=== PATIENT | female | born 1990 | race African-American/Black ===

== ENCOUNTER 2016-07-08 13:54 | Outpatient (CLI) | payer SELFPAY | END 2016-07-08 13:55 | disposition home or self-care (01) | DX: Z13.89 Encounter for screening for other disorder (principal) ==

== ENCOUNTER 2018-05-14 08:00 | Outpatient (CLI) | payer OTHER ==
[2018-05-14 13:31] LABS: BASOPHILS % (AUTO) 0.5 %; EOSINOPHILS # (AUTO) 0.2 10^3/uL (0.0-0.7); EOSINOPHILS % (AUTO) 2.6 %; HGB - HEMOGLOBIN 13.7 g/dL (12.0-16.0); LYMPHOCYTES # (AUTO) 2.1 10^3/uL (1.5-3.5); LYMPHOCYTES % (AUTO) 29.4 %; MEAN CORPUSCULAR HEMOGLOBIN 27.6 pg (27.0-31.0); MEAN CORPUSCULAR HGB CONC 32.7 g/dL (32.0-36.0); MEAN CORPUSCULAR VOLUME 84.5 fL (81.0-99.0); MEAN PLATELET VOLUME 9.4 fL (7.9-10.8); MONOCYTES # (AUTO) 0.7 10^3/uL (0.0-1.0); NEUTROPHILS % (AUTO) 57.5 %; PLT - PLATELET COUNT 247 10^3/uL (130-450); RED BLOOD COUNT 4.97 10^6/uL (4.20-5.40); RED CELL DISTRIBUTION WIDTH 14.6 % (12.0-15.0)
[2018-05-14 15:16] LABS: ALBUMIN 3.8 g/dL (3.2-5.5); ALKALINE PHOSPHATASE 62 IU/L (42-121); ALT ALANINE AMINOTRANSFERASE 19 IU/L (10-60); AST ASPARTATE AMINOTRANSFERASE 22 IU/L (10-42); BILIRUBIN,TOTAL 0.3 mg/dL (0.2-1.0); BUN - BLOOD UREA NITROGEN 17 mg/dL (6-20); CALCIUM 9.4 mg/dL (8.5-10.3); CARBON DIOXIDE - CO2 25 mmol/L (21-32); CHLORIDE 100 mmol/L (101-111); CHOL/HDL RATIO 3.4 (<4.4); CHOLESTEROL 176 mg/dL; CREATININE 0.8 mg/dL (0.4-1.0); GFR - MDRD 102 (>89); GLUCOSE 90 mg/dL (70-100); HDL CHOLESTEROL 52 mg/dL; SODIUM 136 mmol/L (135-145); TOTAL PROTEIN 7.6 g/dL (6.7-8.2)
[2018-05-14 16:48] LABS: LDL CHOLESTEROL,DIRECT 135 mg/dL; LDLD/HDL RATIO 2.6 (<4.4)
== END 2018-05-14 23:59 | disposition home or self-care (01) ==
LOC: LAB.N 08:00
PROVIDERS: ATTEND Nurse Practitioner Gerontology
DX: I10 Essential (primary) hypertension (principal); R63.5 Abnormal weight gain; Z79.899 Other long term (current) drug therapy
CPT/HCPCS: 36415; 80053; 80061; 83721; 84443; 85025

== ENCOUNTER 2018-12-09 08:53 | Outpatient (CLI) | payer OTHER ==
--- NOTE | 2018-12-09 12:14 | XRAY Report ---
Reason: KNEE PAIN Procedure Date: 12/09/2018 Accession Number: [id number] / [id number] Procedure: XRN - Knee 3 View RT CPT Code: FULL RESULT: EXAM: RIGHT KNEE RADIOGRAPHY EXAM DATE: 12/09/2018 09:58 AM. CLINICAL HISTORY: Knee pain. COMPARISON: None. TECHNIQUE: 3 views. FINDINGS: Bones: Normal. No fractures or bone lesions. Joints: Minimal tricompartmental degenerative changes in the right knee with joint space loss and osteophytosis. Possible small effusion. No subluxations. Soft Tissues: Normal. No soft tissue swelling. IMPRESSION: Minimal tricompartmental degenerative changes in the right knee. [facility]
== END 2018-12-09 08:54 | disposition home or self-care (01) ==
LOC: DI.N 08:53
PROVIDERS: ATTEND Nurse Practitioner Gerontology
DX: M17.11 Unilateral primary osteoarthritis, right knee (principal)

== ENCOUNTER 2018-12-20 12:48 | Outpatient (CLI) | payer OTHER ==
--- NOTE | 2018-12-20 15:33 | Ultrasound Report ---
Reason: MENSTRUAL BLEEDING ABNORMAL Procedure Date: 12/20/2018 Accession Number: [id number] / [id number] Procedure: US - Pelvic w/Transvaginal CPT Code: FULL RESULT: EXAM: PELVIC ULTRASOUND EXAM DATE: 12/20/2018 02:00 PM. CLINICAL HISTORY: Menstrual bleeding abnormal. COMPARISON: None. TECHNIQUE: Realtime transabdominal pelvic scan performed to identify the uterus and adnexa and as an overview of other pelvic structures, followed by transvaginal scan to provide greater detail of the uterus and adnexa, with static image documentation. FINDINGS: Uterus: 9.5 x 5.4 x 7.2 cm, volume 193 cc. Anteverted position. Normal overall size and echotexture. Masses: None. Endometrium: 39 mm. Hyperechoic endovascular, suspect endometrial mass measuring probably 3.6 x 1.9 x 2.5 cm. Cervix: Unremarkable. Right Ovary: 6.1 x 3.9 x 5.0 cm, volume 62.2 cc. Normal echotexture and blood flow. A 4.0 x 2.0 x 3.6 cm cyst is noted. Left Ovary: 2.2 x 1.5 x 2.1 cm, volume 3.6 cc. Normal echotexture and blood flow. Free Fluid: None. Other: None. IMPRESSION: Endometrial mass, solid appearing with internal vascularity and measuring up to 3.6 cm. RAD[facility]
== END 2018-12-20 12:49 | disposition home or self-care (01) ==
LOC: DI 12:48
PROVIDERS: ATTEND Nurse Practitioner Gerontology
DX: N93.9 Abnormal uterine and vaginal bleeding, unspecified (principal); R19.09 Other intra-abdominal and pelvic swelling, mass and lump
CPT/HCPCS: 76830; 76856